=== PATIENT | female | born 1995 | race Caucasian/White ===

== ENCOUNTER 2017-12-18 20:13 | Emergency (ER) | payer OTHER ==
[2017-12-18 21:00] VITALS: BP 111/61
--- NOTE | 2017-12-18 21:33 | EDM.PDOC ---
ED HPI GENERAL MEDICAL PROBLEM - General Chief Complaint: Back Pain or Injury Stated Complaint: MID BACK PAIN Time Seen by Provider: 12/18/17 20:15 Source of Information: Reports: Patient History Limitations: Reports: No Limitations - History of Present Illness INITIAL COMMENTS - FREE TEXT/NARRATIVE: This is a 22yo F who presented to the ER via private vehicle with mid-upper back pain that has been constant for the past 3 days. Patient states the pain has worsened and is an 8/10 all the time. Patient states it is hard to breath and the pain gets worse with deep breaths and movement. Nothing improves the pain. She does not recall any trauma or incidents causing this pain. She has not had this issue in the past and has not had any lung or back pain issues in the past. She is on control - nuva ring. She is not a smoker. She did help a friend move things last Saturday but did not think that she strained any muscles. Patient denies any other health concerns or symptoms. She can feel the pain in the mid-upper back and sometimes it feels it is deeper in the mid chest area. She has a loss of appetite. No fever or chills. No chest pain. Onset: Gradual Duration: Day(s):, Getting Worse Location: Reports: Back Quality: Reports: Ache Severity: Moderate Improves with: Reports: None Worsens with: Reports: Breathing, Movement Associated Symptoms: Reports: Shortness of Breath Middle Back Pain Score (Numeric/FACES): 8 - Related Data Allergies Allergy/AdvReac Type Severity Reaction Status Date / Time No Known Allergies Allergy Verified 12/18/17 20:32 Past Medical History HEENT History: Reports: Other (See Below) Other HEENT History: wears correctional glasses Neurological History: Reports: Concussion - Infectious Disease History Infectious Disease History: Reports: Chicken Pox Social & Family History - Tobacco Use Smoking Status *Q: Never Smoker Second Hand Smoke Exposure: No - Caffeine Use Caffeine Use: Reports: Soda - Recreational Drug Use Recreational Drug Use: No ED ROS GENERAL - Review of Systems Review Of Systems: ROS reveals no pertinent complaints other than HPI. ED EXAM, UPPER BACK/NECK PAIN - Physical Exam Exam: See Below Exam Limited By: No Limitations General Appearance: Alert, WD/WN, Mild Distress Eye Exam: Bilateral Eye: EOMI, PERRL Course - Vital Signs Last Recorded V/S: Last Vital Signs Temp 37.0 C 12/18/17 20:22 Pulse 85 12/18/17 20:22 Resp 16 12/18/17 20:22 BP 111/61 12/18/17 20:22 Pulse Ox 99 12/18/17 20:22 - Orders/Labs/Meds Orders: Active Orders 24 hr Category Date Time Status EKG Documentation Completion [RC] ASDIRECTED Care 12/18/17 21:26 Active Labs: Laboratory Tests 12/18/17 12/18/17 12/18/17 Range/Units 21:05 21:05 21:05 WBC 12.1 H (4.0-11.0) K/uL RBC 4.39 (3.80-5.80) M/uL Hgb 12.6 (11.5-16.5) g/dL Hct 37.6 (37.0-47.0) % MCV 86 (76-96) fL MCH 28.7 (27.0-32.0) pg MCHC 33.5 (31.0-35.0) g/dL RDW 13.6 (11.0-16.0) % Plt Count 295 (150-500) K/uL MPV 9.9 (6.0-10.0) fL Neut % (Auto) 81.0 H (45.0-70.0) % Lymph % (Auto) 10.8 L (20.0-40.0) % [place] % (Auto) 7.9 (3.0-10.0) % Eos % (Auto) 0.1 L (1.0-5.0) % Baso % (Auto) 0.2 (0.0-0.5) % Neut # (Auto) 9.79 H (2.00-7.50) K/uL Lymph # (Auto) 1.30 L (1.50-4.00) K/uL [place] # (Auto) 0.95 H (0.20-0.80) K/uL Eos # (Auto) 0.01 L (0.04-0.40) K/uL Baso # (Auto) 0.02 (0.02-0.10) K/uL D-Dimer, Quantitative 150 (0-400) ng/mL Sodium 136 (136-145) mmol/L Potassium 3.9 (3.5-5.1) mmol/L Chloride 100 (98-107) mmol/L Carbon Dioxide 24.6 (21.0-32.0) mmol/L Anion Gap 15.3 H (5.0-15.0) mmol/L BUN 10 (8-26) mg/dL Creatinine 0.92 (0.55-1.02) mg/dL Est Cr Clr Drug Dosing 85.58 mL/min Estimated GFR (MDRD) > 60 (>60) MLS/MIN BUN/Creatinine Ratio 10.9 (6-25) Glucose 131 H (74-100) mg/dL Calcium 8.6 (8.5-10.1) mg/dL Total Bilirubin 0.4 (0.0-1.0) mg/dL AST 17 (15-37) U/L ALT 28 (12-78) U/L Alkaline Phosphatase 93 (46-116) U/L Troponin I < 0.017 (0.000-0.060) ng/mL Total Protein 7.6 (6.4-8.2) g/dL Albumin 3.1 L (3.4-5.0) g/dL Globulin 4.5 H (2.2-4.2) g/dL Albumin/Globulin Ratio 0.7 L (0.8-2.0) Urine Color Urine Appearance (CLEAR) Urine pH (5.0-8.0) Ur Specific [place] (1.003-1.030) Urine Protein (NEGATIVE) mg/dL Urine Glucose (UA) (NEGATIVE) mg/dL Urine Ketones (NEGATIVE) mg/dL Urine Occult Blood (NEGATIVE) Urine Nitrite (NEGATIVE) Urine Bilirubin (NEGATIVE) Urine Urobilinogen (0.2-1.0) E.U./dL Ur Leukocyte Esterase (NEGATIVE) Urine RBC /HPF Urine WBC /HPF Ur Squamous Epith Cells /HPF Urine Bacteria /HPF 12/18/17 Range/Units 21:47 WBC (4.0-11.0) K/uL RBC (3.80-5.80) M/uL Hgb (11.5-16.5) g/dL Hct (37.0-47.0) % MCV (76-96) fL MCH (27.0-32.0) pg MCHC (31.0-35.0) g/dL RDW (11.0-16.0) % Plt Count (150-500) K/uL MPV (6.0-10.0) fL Neut % (Auto) (45.0-70.0) % Lymph % (Auto) (20.0-40.0) % [place] % (Auto) (3.0-10.0) % Eos % (Auto) (1.0-5.0) % Baso % (Auto) (0.0-0.5) % Neut # (Auto) (2.00-7.50) K/uL Lymph # (Auto) (1.50-4.00) K/uL [place] # (Auto) (0.20-0.80) K/uL Eos # (Auto) (0.04-0.40) K/uL Baso # (Auto) (0.02-0.10) K/uL D-Dimer, Quantitative (0-400) ng/mL Sodium (136-145) mmol/L Potassium (3.5-5.1) mmol/L Chloride (98-107) mmol/L Carbon Dioxide (21.0-32.0) mmol/L Anion Gap (5.0-15.0) mmol/L BUN (8-26) mg/dL Creatinine (0.55-1.02) mg/dL Est Cr Clr Drug Dosing mL/min Estimated GFR (MDRD) (>60) MLS/MIN BUN/Creatinine Ratio (6-25) Glucose (74-100) mg/dL Calcium (8.5-10.1) mg/dL Total Bilirubin (0.0-1.0) mg/dL AST (15-37) U/L ALT (12-78) U/L Alkaline Phosphatase (46-116) U/L Troponin I (0.000-0.060) ng/mL Total Protein (6.4-8.2) g/dL Albumin (3.4-5.0) g/dL Globulin (2.2-4.2) g/dL Albumin/Globulin Ratio (0.8-2.0) Urine Color Yellow Urine Appearance Clear (CLEAR) Urine pH 6.5 (5.0-8.0) Ur Specific [place] 1.020 (1.003-1.030) Urine Protein Negative (NEGATIVE) mg/dL Urine Glucose (UA) Negative (NEGATIVE) mg/dL Urine Ketones 40 H (NEGATIVE) mg/dL Urine Occult Blood Trace-lysed H (NEGATIVE) Urine Nitrite Negative (NEGATIVE) Urine Bilirubin Negative (NEGATIVE) Urine Urobilinogen 0.2 (0.2-1.0) E.U./dL Ur Leukocyte Esterase Negative (NEGATIVE) Urine RBC 0-5 H /HPF Urine WBC Not seen /HPF Ur Squamous Epith Cells Occasional /HPF Urine Bacteria Occasional /HPF Meds: Medications Discontinued Medications Generic Name Dose Route Start Last Admin Trade Name Wiley PRN Reason Stop Dose Admin Cyclobenzaprine HCl 150 mg 12/18/17 23:00 Flexeril .ROUTE 12/18/17 23:01 .STK-MED ONE Sodium Chloride 1,000 mls @ 999 mls/hr 12/18/17 22:00 12/18/17 22:20 Normal Saline IV 999 mls/hr ASDIRECTED SAL Administration Naproxen 10,000 mg 12/18/17 23:00 Naprosyn .ROUTE 12/18/17 23:01 .STK-MED ONE Tramadol HCl 500 mg 12/18/17 23:00 Ultram .ROUTE 12/18/17 23:01 .STK-MED ONE Departure - Departure Time of Disposition: 22:45 Disposition: Home, Self-Care 01 Condition: Good Clinical Impression: Back pain Qualifiers: Back pain location: thoracic back pain Chronicity: acute Back pain laterality: bilateral Qualified Code(s): M54.6 - Pain in thoracic spine - Discharge Information Instructions: Naproxen; Sumatriptan tablets, Cyclobenzaprine tablets, Tramadol tablets, Back Pain, Adult, [id number] Referrals: PCP,None [Primary Care Provider] - Forms: ED Department Discharge Additional Instructions: Medications to take at home are the followin. Cyclobenzaprine 10 mg - take one tablet 3 times a day with food (8:00 am - 2:00 pm - 8:00 pm) 2. Tramadol 50 mg - take one tablet every 6 hours when needed for pain. 3. Naproxen 500 mg - take one tablet two times daily with food - (8:00 am - 8:00 pm) - Watch for any signs of allergic reactions such as itchiness, hives, shortness of breath, and others, come to the ER as soon as possible. - If your back pains worsen, come and see your provider. - Problem List & Annotations (1) Back pain SNOMED Code(s): 236022098 Code(s): M54.9 - DORSALGIA, UNSPECIFIED Status: Acute Qualifiers: Back pain location: thoracic back pain Chronicity: acute Back pain laterality: bilateral Qualified Code(s): M54.6 - Pain in thoracic spine - Problem List Review Problem List Initiated/Reviewed/Updated: Yes - My Orders Last 24 Hours: My Active Orders 12/18/17 21:26 EKG Documentation Completion [RC] ASDIRECTED - Assessment/Plan Last 24 Hours: My Active Orders 12/18/17 21:26 EKG Documentation Completion [RC] ASDIRECTED Plan: Patient counseled on close monitoring and f/u in ER if symptoms return and/or worsen for further workup. Discussed the need for further workup if symptoms return. Discussed current workup including elevated WBC and Ketones. Discussed the need for f/u with PCP in the next few days. Patient understands the need for close monitoring and f/u in ER and clinic.
[2017-12-18] MEDS: Sodium Chloride 0.9% 1,000 ML IV SCH (22:20)
[2017-12-18] MEDS ORDERED: Cyclobenzaprine 10 MG Tab ONE (23:00)
[2017-12-18] MEDS ORDERED: Naproxen 500 MG Tab ONE (23:00)
[2017-12-18] MEDS ORDERED: traMADol 50 MG Tab ONE (23:00)
--- NOTE | 2017-12-19 10:24 | CT ---
DATE OF SERVICE: 12/18/17 CLINICAL DATA: shortness of breath UNENHANCED CHEST CT: Multislice acquisition through the chest without IV contrast was performed. No priors. The lungs are clear. No areas of consolidation. No pneumothorax. No pleural effusion. The exam is nondiagnostic for PE without IV contrast. The heart size is normal. No pericardial effusion. No hilar or mediastinal adenopathy. No evidence of aortic aneurysm. IMPRESSION: Negative exam. [id number] [facility]
== END 2017-12-18 23:26 | disposition home or self-care (01) ==
LOC: LB.ED 20:13
DX: M54.6 Pain in thoracic spine (principal)
CPT/HCPCS: 36415; 71250; 80053; 81001; 84484; 85025; 85379; 93005; 99284; A9270; J7040